=== PATIENT | male | born 1960 | race Caucasian/White ===

== ENCOUNTER 2017-01-15 02:33 | Emergency (ER) | payer OTHER ==
[~2017-01-15] VITALS: Ht 177.8 cm; Wt 104.3 kg
[~2017-01-15 02:33] MED LIST: ACET325T9 PO; ACET500T68 PO; ALBU2.5V5 NEB; ATOR10TA PO; BACL10TA PO; BENZ9.4C MM; BUSP10TA PO; BUSP5TAB PO; CHOL10003 PO; CLOP75TA57 PO; DIAZ2TAB PO; DOCU-109 PO; DULO30CA2 PO; DULO60CA6 PO; FAMO40TA57 PO; FERR-26 PO; FINA5TAB PO; FOLI1TAB16 PO; GABA-586 PO; GABA800T2 PO; HYDR-2762 PO; HYDR25TA PO; LACT20SO PO; LEVE500T56 PO; LEVO25TA4 PO; LUBI24CA7 PO; MAGN2400 PO; MAGN400T22 PO; MECL25TA3 PO; METO25TA4 PO; NA P133E2 RC; NICO1PAT21 TD; ONDA4TAB7 PO; PANT40TA3 PO; PHEN30SP8 MM; POLY17PO29 PO; PRAM0.255 PO; PRAZ2CAP2 PO; SIME80TA14 PO; SODIUM PHOSPHATE PR; TRAM50TA PO; TRAZ100T12 PO; ZINC57OI TP; Zinc Oxide TP; [UNRECOGNIZED DRUG - OTHER]; methadone PO; neurontin
--- NOTE | 2017-01-15 03:47 | RAD ---
PQRS Compliance Statement: One or more of the following individualized dose reduction techniques were utilized for this examination: 1. Automated exposure control 2. Adjustment of the mA and/or kV according to patient size 3. Use of iterative reconstruction technique CT head and cervical spine without contrast 01/15/2017 3:03 AM INDICATION: Trauma, status post fall COMPARISON: None available TECHNIQUE: Multiple axial CT images of the head were obtained from skull base through the vertex without intravenous contrast. Multiple axial CT images of the cervical spine were obtained without intravenous contrast. Coronal and sagittal reformats are provided. FINDINGS: Head: There is encephalomalacia involving the left frontal and temporal lobes likely secondary to prior MCA infarct. There is associated ex vacuo dilatation of the body of the left lateral ventricle. Ventricles, sulci and basal cisterns are otherwise within normal limits. There is no hydrocephalus. Cabrera-white matter differentiation is normal. There is no acute intracranial hemorrhage. There is no mass, mass effect or midline shift. Posterior fossa is normal in appearance. Visualized portions of the orbits are normal. Paranasal sinuses are well aerated. Mastoid air cells are well aerated. Scalp and calvaria are normal. Cervical spine: Alignment of the cervical spine is normal. Anterior cervical discectomy and fusion hardware is identified from C5 through C7. There is no significant facet arthropathy. A limbus vertebra is identified at C4 and C5. Fragments are well corticated suggestive of chronic findings. No significant neuroforaminal or spinal canal stenosis is visualized. There is no significant prevertebral edema. Craniocervical junction is normal. Atlantoaxial articulation is appropriate. Soft tissues of the neck appear normal. Visualized portions of the lung apices appear normal. Thyroid gland is normal in appearance. IMPRESSION: No acute intracranial hemorrhage. There is no evidence for acute fracture or malalignment of the cervical spine. 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 Anterior cervical discectomy and fusion is noted at C5-C7. Electronically signed by: Tish Bolden MD (01/15/2017 3:43 AM) [place] [id number]
--- NOTE | 2017-01-15 04:07 | PHYS DOC ---
Past Medical History Past Medical History: Anxiety, Constipation, CVA, Depression, GERD, High Cholesterol, Hypertension, Hypothyroid, UTI, Other Additional Past Medical Histor: PAIN, BPH,HEMIPLEGIA AND HEMIPARESIS,APHASIA, Hep C, RLS Past Surgical History: No Surgical History Additional Past Surgical Histo: UNKNOWN Alcohol Use: None Drug Use: None Adult General Chief Complaint Chief Complaint: MECHANICAL FALL HPI HPI Patient history and physical exam is unobtainable secondary to his inability to communicate. Patient is a 56 year old gentleman who presents from the nursing facility secondary to trauma. Patient was found on the floor. Per the correction the patient is currently at his baseline mental status. Patient is able to communicate slightly simple yes no answers. Patient is complaining of pain to his right hip and his right shoulder. Patient denies any neck pain or head pain. Patient isn't able to communicate to me why he fell. Review of systems: Unable to obtain secondary to inability to communicate. Physical exam Constitutional: Well developed, well nourished, no acute distress, non-toxic appearance. HENT: Normocephalic, atraumatic, Eyes: PERRLA, EOMI, conjunctiva normal, no discharge. Neck: Normal range of motion, no tenderness, supple, no stridor. Cardiovascular:Heart rate regular rhythm, Lungs & Thorax: Bilateral breath sounds clear to auscultation Abdomen: Bowel sounds normal, soft, no tenderness, no masses, no pulsatile masses. Skin: Warm, dry, no erythema, no rash. Back: No tenderness, no CVA tenderness. Extremities: No tenderness, no cyanosis, no clubbing, ROM intact, no edema. Patient is tenderness palpation to his right iliac crest. Patient is tenderness palpation to his right shoulder. Neurologic: Alert and oriented , Psychologic: Affect normal, judgement normal, mood normal. Assessment and plan This is a 56-year-old gentleman who presents by EMS secondary to recent fall from the nursing facility. Patient's workup in the ER is been unremarkable. X-ray right hip: No acute fracture dislocation as interpreted by ER physician X-ray right shoulder: No acute fracture dislocation as interpreted by ER physician. She scan head and cervical spine: No acute fracture or subdural hematoma as interpreted by radiology. Patient is clinically and hemodynamically stable at this time. Patient will be discharged back to his nursing facility with instructions for Tylenol as needed for pain. Allergies Allergies Allergies Coded Allergies Type Severity Reaction Last Updated Verified Penicillins Allergy Intermediate 10/28/15 Yes I S O L A T I O N *CONTACT* Allergy Unknown 10/28/15 Yes Current Patient Data Vital Signs Vital Signs Date Time Temp Pulse Resp B/P (MAP) Pulse Ox O2 Delivery O2 Flow Rate FiO2 01/15/17 02:40 97.6 85 18 149/72 (97) 95 Nasal Cannula 2.0 97.6 EKG EKG [] Radiology/Procedures Radiology/Procedures [] Course & Med Decision Making Course & Med Decision Making Pertinent Labs and Imaging studies reviewed. (See chart for details) [] Dragon Disclaimer Dragon Disclaimer This electronic medical record was generated, in whole or in part, using a voice recognition dictation system. Departure Departure Impression: Primary Impression: Fall Additional Impressions: Hip pain Head trauma Disposition: HOME, SELF-CARE Condition: STABLE Referrals: ENZO HOLLEY MD (PCP) Additional Instructions: Tylenol as needed for pain. Problem Qualifiers LUIS CARLOS MCGUIRE MD Jan 15, 2017 04:07
[2017-01-15 04:59] VITALS: BP 127/64
--- NOTE | 2017-01-15 07:19 | RAD ---
Pelvis with right hip, 01/15/2017: History: Fall, pain The bony structures are demineralized. There is a subtle transverse lucency projected over the medial aspect of the right femoral neck. While this may be due to an overlying soft tissue shadow, the appearance does raise the possibility of a nondisplaced fracture. No other fracture or dislocation is identified. There is mild spurring at both hip joints. IMPRESSION: Possible nondisplaced right femoral neck fracture. CT or MR scanning is suggested for further evaluation, if clinically indicated. Right shoulder, 3 views, 01/15/2017: History: Fall, pain The bony structures are demineralized. No fracture or dislocation is identified. The periarticular soft tissues are unremarkable. IMPRESSION: 1. Demineralization. 2. No acute bony abnormality is detected. Note: The findings were called to personnel in the [facility] ER at 7:15 AM on 01/15/2017.
== END 2017-01-15 05:15 | disposition home or self-care (01) ==
LOC: ER 02:33
DX: S09.90XA Unspecified injury of head, initial encounter (principal); M25.551 Pain in right hip; M25.511 Pain in right shoulder; F41.9 Anxiety disorder, unspecified; F32.9 Major depressive disorder, single episode, unspecified; K21.9 Gastro-esophageal reflux disease without esophagitis; E78.00 Pure hypercholesterolemia, unspecified; I10 Essential (primary) hypertension; E03.9 Hypothyroidism, unspecified; N40.0 Benign prostatic hyperplasia without lower urinary tract symptoms; G81.90 Hemiplegia, unspecified affecting unspecified side; G25.81 Restless legs syndrome; Z87.440 Personal history of urinary (tract) infections; Z88.0 Allergy status to penicillin; Z86.73 Personal history of transient ischemic attack (TIA), and cerebral infarction without residual deficits; Z91.041 Radiographic dye allergy status; W19.XXXA Unspecified fall, initial encounter; Y93.89 Activity, other specified; Y92.89 Other specified places as the place of occurrence of the external cause; Y99.8 Other external cause status
CPT/HCPCS: 70450; 72125; 73030; 73502; 99284-25

== ENCOUNTER 2017-05-05 20:33 | Inpatient (IN) | payer OTHER ==
[2017-05-05] MEDS: IV NORMAL SALINE 1000ML BAG 1,000 ML IV (21:45)
[2017-05-05 21:46] LABS: ADD MAN DIFF? NO
[2017-05-05 21:48] LABS: BASO % 0 % (0-3); EOS # 0.2 x10^3/uL (0.0-0.7); EOS % 1 % (0-3); HEMATOCRIT 40.4 % (39.0-53.0); HEMOGLOBIN 13.2 g/dL (13.0-17.5); LYMPH # 2.5 x10^3/uL (1.0-4.8); LYMPH % 20 % (24-48); MEAN CORPUSCULAR HEMOGLOBIN 26 pg (25-35); MEAN CORPUSCULAR HGB CONC 33 g/dL (31-37); MEAN CORPUSCULAR VOLUME 80 fL (79-100); MONO # 0.8 x10^3/uL (0.0-1.1); MONO % 7 % (0-9); NEUT # 9.2 x10^3uL (1.8-7.7); NEUT % 72 % (31-73); PLATELET COUNT 280 x10^3/uL (140-400); RED BLOOD COUNT 5.03 x10^6/uL (4.30-5.70); RED CELL DISTRIBUTION WIDTH 15.1 % (11.5-14.5); WHITE BLOOD COUNT 12.7 x10^3/uL (4.0-11.0)
[2017-05-05 21:56] LABS: ANION GAP 7 (6-14); BLOOD UREA NITROGEN 6 mg/dL (8-26); BUN/CREATININE RATIO 8 (6-20); CALCIUM 9.1 mg/dL (8.5-10.1); CARBON DIOXIDE 31 mmol/L (21-32); CHLORIDE 105 mmol/L (98-107); CREATININE 0.8 mg/dL (0.7-1.3); GFR 99.6; GLUCOSE 128 mg/dL (70-99); POTASSIUM 4.4 mmol/L (3.5-5.1); SODIUM 143 mmol/L (136-145)
[2017-05-05 22:01] LABS: ALBUMIN 3.1 g/dL (3.4-5.0); ALBUMIN/GLOBULIN RATIO 0.7 (1.0-1.7); ALK PHOS 123 U/L (46-116); ALT (SGPT) 33 U/L (16-63); AST (SGOT) 29 U/L (15-37); TOTAL BILIRUBIN 0.3 mg/dL (0.2-1.0); TOTAL PROTEIN 7.7 g/dL (6.4-8.2)
[2017-05-05 22:03] LABS: TROPONINI < 0.017 ng/mL (0.000-0.055)
[2017-05-05] MEDS: MORPHINE SULFATE 2 MG/ML DISP.SYRIN. IV (23:50)
[2017-05-06 00:29] LABS: BILIRUBIN,URINE NEGATIVE (NEG); CLARITY,URINE CLEAR; COLOR,URINE AMBER; GLUCOSE,URINE NEGATIVE (NEG); NITRITE,URINE NEGATIVE (NEG); PROTEIN,URINE NEGATIVE (NEG-TRACE)
[2017-05-06 00:34] LABS: BACTERIA,URINE 0 /HPF (0-FEW); RBC,URINE 0 /HPF (0-2); SQUAMOUS EPITHELIAL CELL,UR FEW /LPF
[2017-05-06] MEDS: ONDANSETRON PF 4 MG/2 ML VIAL. IV (01:52)
[2017-05-06] MEDS: MORPHINE SULFATE 4 MG/ML DISP.SYRIN. IV ×6 (01:53→21:48)
[2017-05-06] MEDS: IV NORMAL SALINE 1000ML BAG 1,000 ML IV ×4 (01:54→17:45)
[2017-05-06] MEDS ORDERED: ALBUTEROL SULFATE 2.5 MG/3 ML NEBU. NEB (09:45)
[2017-05-06] MEDS: BUDESONIDE 0.5 MG/2 ML NEBU. NEB ×2 (10:00→19:50)
[2017-05-06 11:10] LABS: INR 1.1 (0.8-1.1); PROTHROMBIN TIME PATIENT 13.1 SEC (11.7-14.0)
[2017-05-06] MEDS: IPRATRPIUM/ALBUTEROL 0.5/2.5MG 3 ML NEBU. NEB ×3 (11:15→19:50)
[2017-05-06] MEDS: LEVOTHYROXINE SODIUM IVP (11:40)
[2017-05-06] MEDS: NORMAL SALINE IVP (11:40)
[2017-05-06 17:14] LABS: MRSA BY PCR Positive (Negative)
[2017-05-06] MEDS: MUPIROCIN 2 % NASAL OINTMENT 22GM TUBE. NS (21:48)
[2017-05-06] MEDS: HEPARIN PF for SUB-Q USE 5,000 UNIT/0.5 ML VIAL. SQ (21:48)
[2017-05-07] MEDS: IV NORMAL SALINE 1000ML BAG 1,000 ML IV ×3 (01:33→21:27)
[2017-05-07] MEDS: MORPHINE SULFATE 4 MG/ML DISP.SYRIN. IV ×4 (01:34→13:22)
[2017-05-07] MEDS: HEPARIN PF for SUB-Q USE 5,000 UNIT/0.5 ML VIAL. SQ ×3 (05:06→21:52)
[2017-05-07 05:36] LABS: ADD MAN DIFF? NO
[2017-05-07 05:41] LABS: BASO % 0 % (0-3); EOS # 0.2 x10^3/uL (0.0-0.7); EOS % 3 % (0-3); HEMOGLOBIN 12.7 g/dL (13.0-17.5); LYMPH # 2.2 x10^3/uL (1.0-4.8); LYMPH % 24 % (24-48); MEAN CORPUSCULAR HEMOGLOBIN 26 pg (25-35); MEAN CORPUSCULAR HGB CONC 33 g/dL (31-37); MEAN CORPUSCULAR VOLUME 80 fL (79-100); MONO # 0.6 x10^3/uL (0.0-1.1); MONO % 6 % (0-9); NEUT # 6.2 x10^3uL (1.8-7.7); NEUT % 67 % (31-73); PLATELET COUNT 270 x10^3/uL (140-400); RED BLOOD COUNT 4.89 x10^6/uL (4.30-5.70); RED CELL DISTRIBUTION WIDTH 15.2 % (11.5-14.5); WHITE BLOOD COUNT 9.3 x10^3/uL (4.0-11.0)
[2017-05-07 06:15] LABS: ANION GAP 5 (6-14); BLOOD UREA NITROGEN 7 mg/dL (8-26); CALCIUM 8.7 mg/dL (8.5-10.1); CARBON DIOXIDE 31 mmol/L (21-32); CHLORIDE 102 mmol/L (98-107); CREATININE 0.7 mg/dL (0.7-1.3); GFR 116.2; GLUCOSE 95 mg/dL (70-99); MAGNESIUM 1.9 mg/dL (1.8-2.4); POTASSIUM 4.2 mmol/L (3.5-5.1); SODIUM 138 mmol/L (136-145)
[2017-05-07] MEDS: IPRATRPIUM/ALBUTEROL 0.5/2.5MG 3 ML NEBU. NEB ×4 (07:20→20:00)
[2017-05-07] MEDS: BUDESONIDE 0.5 MG/2 ML NEBU. NEB ×2 (07:20→20:00)
[2017-05-07] MEDS: LEVOTHYROXINE SODIUM IVP (09:42)
[2017-05-07] MEDS: NORMAL SALINE IVP (09:42)
[2017-05-07] MEDS: ONDANSETRON PF 4 MG/2 ML VIAL. IV (09:44)
[2017-05-07] MEDS: IV RINGERS,LACTATED 1000ML 1,000 ML IV (10:04)
[2017-05-07] MEDS ORDERED: fentaNYL PF VIAL 100 MCG/2 ML VIAL IV (10:15)
[2017-05-07] MEDS ORDERED: MORPHINE SULFATE 4 MG/ML DISP.SYRIN. IV (10:15)
[2017-05-07] MEDS ORDERED: LIDOCAINE 1% PF 2 ML VIAL. ID (10:15)
[2017-05-07] MEDS ORDERED: PROCHLORPERAZINE 10 MG/2 ML VIAL. IV (10:15)
[2017-05-07] MEDS: MUPIROCIN 2 % NASAL OINTMENT 22GM TUBE. NS ×2 (13:21→21:27)
[2017-05-07] MEDS ORDERED: LIDOCAINE 1% PF 5 ML VIAL. (13:24)
[2017-05-07] MEDS ORDERED: PROPOFOL 20 ML IV ×2 (13:24→18:09)
[2017-05-07] MEDS ORDERED: ROCURONIUM 50 MG/5 ML VIAL. (13:25)
[2017-05-07] MEDS ORDERED: SUCCINYLCHOLINE 200 MG/10 ML VIAL. (13:26)
[2017-05-07] MEDS ORDERED: fentaNYL PF VIAL 100 MCG/2 ML VIAL (13:26)
[2017-05-07] MEDS ORDERED: VANCOMYCIN 1GM IVPB FOR OMNI 250 ML (16:42)
[2017-05-07] MEDS: VANCOMYCIN 1GM IVPB FOR OMNI 250 ML IV (16:46)
[2017-05-07] MEDS: MORPHINE SULFATE 5 MG, KETOROLAC 30 MG, ROPIVacaine 0.5% PF 60 ML, EPINEPHrine 0.5 MG i... INT ART (17:19)
[2017-05-07] MEDS ORDERED: NEOSTIGMINE 10 MG/10 ML VIAL. (17:44)
[2017-05-07] MEDS ORDERED: GLYCOPYRROLATE 1 MG/5 ML VIAL. (17:45)
[2017-05-07] MEDS: fentaNYL PF VIAL 100 MCG/2 ML VIAL IV ×2 (18:43→18:55)
[2017-05-08] MEDS: IV NORMAL SALINE 1000ML BAG 1,000 ML IV (01:45)
[2017-05-08 04:38] LABS: ADD MAN DIFF? NO
[2017-05-08] MEDS ORDERED: VANCOMYCIN 1GM IVPB FOR OMNI 250 ML IV (05:00)
[2017-05-08 05:05] LABS: BASO % 0 % (0-3); EOS # 0.2 x10^3/uL (0.0-0.7); EOS % 2 % (0-3); HEMOGLOBIN 11.6 g/dL (13.0-17.5); LYMPH # 1.6 x10^3/uL (1.0-4.8); LYMPH % 16 % (24-48); MEAN CORPUSCULAR HEMOGLOBIN 26 pg (25-35); MEAN CORPUSCULAR HGB CONC 33 g/dL (31-37); MEAN CORPUSCULAR VOLUME 79 fL (79-100); MONO # 0.8 x10^3/uL (0.0-1.1); MONO % 8 % (0-9); NEUT # 7.6 x10^3uL (1.8-7.7); NEUT % 75 % (31-73); PLATELET COUNT 270 x10^3/uL (140-400); RED BLOOD COUNT 4.41 x10^6/uL (4.30-5.70); RED CELL DISTRIBUTION WIDTH 14.7 % (11.5-14.5); WHITE BLOOD COUNT 10.1 x10^3/uL (4.0-11.0)
[2017-05-08 05:08] LABS: ANION GAP 6 (6-14); BLOOD UREA NITROGEN 5 mg/dL (8-26); CALCIUM 8.3 mg/dL (8.5-10.1); CARBON DIOXIDE 31 mmol/L (21-32); CHLORIDE 103 mmol/L (98-107); CREATININE 0.7 mg/dL (0.7-1.3); GFR 116.2; GLUCOSE 103 mg/dL (70-99); POTASSIUM 3.8 mmol/L (3.5-5.1); SODIUM 140 mmol/L (136-145)
[2017-05-08] MEDS: HEPARIN PF for SUB-Q USE 5,000 UNIT/0.5 ML VIAL. SQ ×3 (05:35→23:15)
[2017-05-08] MEDS: VANCOMYCIN 1 GM in IV NORMAL SALINE 250ML 250 ML IV (05:49)
[2017-05-08] MEDS: MORPHINE SULFATE 4 MG/ML DISP.SYRIN. IV (05:50)
[2017-05-08] MEDS: ACETAMINOPHEN 325 MG TABLET. PO ×3 (07:13→20:27)
[2017-05-08] MEDS: IPRATRPIUM/ALBUTEROL 0.5/2.5MG 3 ML NEBU. NEB ×4 (07:41→20:00)
[2017-05-08] MEDS: BUDESONIDE 0.5 MG/2 ML NEBU. NEB ×2 (07:41→20:00)
[2017-05-08] MEDS: ACETAMINOPHEN 325 MG SUPP.RECT. PR (07:44)
[2017-05-08] MEDS ORDERED: MECLIZINE HCL 12.5 MG TABLET. PO (08:15)
[2017-05-08] MEDS ORDERED: SODIUM PHOSPHATES 19/7GM 133 ML ENEMA. RC (08:15)
[2017-05-08] MEDS: NORMAL SALINE IVP (08:27)
[2017-05-08] MEDS: LEVOTHYROXINE SODIUM IVP (08:27)
[2017-05-08] MEDS: MUPIROCIN 2 % NASAL OINTMENT 22GM TUBE. NS ×2 (08:27→20:29)
[2017-05-08] MEDS: AMINO AC 3%/ELECTROLYTE/GLYCER 1,000 ML IV ×2 (10:30→23:09)
[2017-05-08] MEDS: FOLIC ACID 1 MG TABLET. PO (10:32)
[2017-05-08] MEDS: LUBIPROSTONE 8 MCG CAPSULE PO ×2 (10:32→18:00)
[2017-05-08] MEDS: POLYETHYLENE GLYCOL 3350 17 GM PACKET. PO (10:32)
[2017-05-08] MEDS: PANTOPRAZOLE 40 MG TABLET.DR. PO (10:32)
[2017-05-08] MEDS: busPIRone 5 MG TABLET. PO ×3 (10:32→20:27)
[2017-05-08] MEDS: CHOLECALCIFEROL (VITAMIN D3) 1,000 UNIT TABLET PO (10:32)
[2017-05-08] MEDS: GABAPENTIN 400 MG CAPSULE. PO ×3 (10:33→23:08)
[2017-05-08] MEDS: diazePAM 2 MG TABLET PO ×2 (10:33→20:26)
[2017-05-08] MEDS: DOCUSATE SODIUM 100 MG CAPSULE. PO ×2 (10:33→20:28)
[2017-05-08] MEDS: METHADONE 5 MG/5 ML SOLUTION. PO ×3 (10:33→20:28)
[2017-05-08] MEDS: MAGNESIUM OXIDE 400 MG TABLET PO ×2 (10:33→23:08)
[2017-05-08] MEDS: BACLOFEN 10 MG TABLET. PO ×3 (10:33→20:28)
[2017-05-08 11:07] LABS: BILIRUBIN,URINE NEGATIVE (NEG); CLARITY,URINE CLOUDY; COLOR,URINE YELLOW; GLUCOSE,URINE NEGATIVE (NEG); NITRITE,URINE NEGATIVE (NEG); PH,URINE 6.5; PROTEIN,URINE NEGATIVE (NEG-TRACE); UROBILINOGEN,URINE 0.2 mg/dL (0.2 mg/dL)
[2017-05-08 11:16] LABS: BACTERIA,URINE 0 /HPF (0-FEW); RBC,URINE OCC /HPF (0-2); WBC,URINE 0 /HPF (0-4)
[2017-05-08] MEDS: VANCOMYCIN PER PHARMACY MC ×2 (20:00→21:39)
[2017-05-08] MEDS: HYDROcodone/APAP 7.5/325MG 1 TAB TABLET PO (20:26)
[2017-05-08] MEDS: DULoxetine HCL 30 MG CAPSULE.DR PO (20:26)
[2017-05-08] MEDS: ATORVASTATIN CALCIUM 10 MG TABLET. PO (20:27)
[2017-05-08] MEDS: CLOPIDOGREL BISULFATE 75 MG TABLET PO (20:27)
[2017-05-08] MEDS: LACTOBACILLUS RHAMNOSUS GG 1 CAPSULE. PO (20:27)
[2017-05-08] MEDS: VANCOMYCIN 2 GM in IV DEXTROSE 5 %-0.2 % NACL 500 ML IV (20:29)
[2017-05-08] MEDS: PRAMIPEXOLE 0.25 MG TABLET. PO (23:08)
[2017-05-08] MEDS: GABAPENTIN 300 MG CAPSULE. PO (23:09)
[2017-05-09] MEDS: HYDROcodone/APAP 7.5/325MG 1 TAB TABLET PO ×4 (02:35→21:23)
[2017-05-09 05:07] LABS: ADD MAN DIFF? NO
[2017-05-09] MEDS: VANCOMYCIN 1.5 GM in IV DEXTROSE 5 %-0.2 % NACL 500 ML IV ×2 (05:07→12:43)
[2017-05-09 05:17] LABS: BASO % 0 % (0-3); EOS # 0.2 x10^3/uL (0.0-0.7); EOS % 2 % (0-3); HEMATOCRIT 32.6 % (39.0-53.0); HEMOGLOBIN 10.8 g/dL (13.0-17.5); LYMPH # 2.5 x10^3/uL (1.0-4.8); LYMPH % 31 % (24-48); MEAN CORPUSCULAR HEMOGLOBIN 26 pg (25-35); MEAN CORPUSCULAR HGB CONC 33 g/dL (31-37); MEAN CORPUSCULAR VOLUME 79 fL (79-100); MONO % 13 % (0-9); NEUT # 4.4 x10^3uL (1.8-7.7); NEUT % 54 % (31-73); PLATELET COUNT 267 x10^3/uL (140-400); RED BLOOD COUNT 4.14 x10^6/uL (4.30-5.70); RED CELL DISTRIBUTION WIDTH 14.7 % (11.5-14.5); WHITE BLOOD COUNT 8.1 x10^3/uL (4.0-11.0)
[2017-05-09 05:34] LABS: ANION GAP 8 (6-14); BLOOD UREA NITROGEN 8 mg/dL (8-26); CALCIUM 8.2 mg/dL (8.5-10.1); CARBON DIOXIDE 29 mmol/L (21-32); CHLORIDE 101 mmol/L (98-107); CREATININE 0.8 mg/dL (0.7-1.3); GFR 99.6; GLUCOSE 136 mg/dL (70-99); POTASSIUM 3.4 mmol/L (3.5-5.1); SODIUM 138 mmol/L (136-145)
[2017-05-09] MEDS: ACETAMINOPHEN 325 MG TABLET. PO (06:16)
[2017-05-09] MEDS: PANTOPRAZOLE 40 MG TABLET.DR. PO (06:16)
[2017-05-09] MEDS: HEPARIN PF for SUB-Q USE 5,000 UNIT/0.5 ML VIAL. SQ ×3 (06:21→21:17)
[2017-05-09] MEDS: IPRATRPIUM/ALBUTEROL 0.5/2.5MG 3 ML NEBU. NEB ×4 (07:31→20:04)
[2017-05-09] MEDS: BUDESONIDE 0.5 MG/2 ML NEBU. NEB ×2 (07:31→20:04)
[2017-05-09] MEDS: POLYETHYLENE GLYCOL 3350 17 GM PACKET. PO (09:03)
[2017-05-09] MEDS: CHOLECALCIFEROL (VITAMIN D3) 1,000 UNIT TABLET PO (09:03)
[2017-05-09] MEDS: MAGNESIUM OXIDE 400 MG TABLET PO ×2 (09:03→21:11)
[2017-05-09] MEDS: NORMAL SALINE IVP (09:03)
[2017-05-09] MEDS: LEVOTHYROXINE SODIUM IVP (09:03)
[2017-05-09] MEDS: GABAPENTIN 400 MG CAPSULE. PO ×3 (09:04→21:11)
[2017-05-09] MEDS: busPIRone 5 MG TABLET. PO ×3 (09:04→21:11)
[2017-05-09] MEDS: LUBIPROSTONE 8 MCG CAPSULE PO ×2 (09:04→17:56)
[2017-05-09] MEDS: diazePAM 2 MG TABLET PO ×2 (09:04→21:11)
[2017-05-09] MEDS: DOCUSATE SODIUM 100 MG CAPSULE. PO ×2 (09:04→21:11)
[2017-05-09] MEDS: FOLIC ACID 1 MG TABLET. PO (09:04)
[2017-05-09] MEDS: BACLOFEN 10 MG TABLET. PO ×3 (09:04→21:11)
[2017-05-09] MEDS: LACTOBACILLUS RHAMNOSUS GG 1 CAPSULE. PO ×2 (09:04→21:11)
[2017-05-09] MEDS: METHADONE 5 MG/5 ML SOLUTION. PO ×3 (09:05→21:07)
[2017-05-09] MEDS: MUPIROCIN 2 % NASAL OINTMENT 22GM TUBE. NS ×2 (09:05→21:06)
[2017-05-09] MEDS: AMINO AC 3%/ELECTROLYTE/GLYCER 1,000 ML IV (10:29)
[2017-05-09] MEDS: MORPHINE SULFATE 4 MG/ML DISP.SYRIN. IV ×2 (10:45→19:07)
[2017-05-09 11:14] LABS: INFLUENZA A PATIENT NEGATIVE (NEGATIVE); INFLUENZA B PATIENT NEGATIVE (NEGATIVE); OBC FLU VALID
[2017-05-09 11:41] LABS: PROCALCITONIN < 0.10 ng/mL (0.00-0.10)
[2017-05-09] MEDS: VANCOMYCIN PER PHARMACY MC ×2 (15:04→21:30)
[2017-05-09] MEDS: FERROUS SULFATE 325 MG TABLET. PO (17:56)
[2017-05-09 21:02] LABS: VANC TR 26.7 mcg/mL (10.0-20.0)
[2017-05-09] MEDS: PRAMIPEXOLE 0.25 MG TABLET. PO (21:09)
[2017-05-09] MEDS: levETIRAcetam 500 MG TABLET PO (21:09)
[2017-05-09] MEDS: DULoxetine HCL 30 MG CAPSULE.DR PO (21:09)
[2017-05-09] MEDS: ATORVASTATIN CALCIUM 10 MG TABLET. PO (21:09)
[2017-05-09] MEDS: GABAPENTIN 300 MG CAPSULE. PO (21:10)
[2017-05-09] MEDS: CLOPIDOGREL BISULFATE 75 MG TABLET PO (21:11)
[2017-05-10] MEDS: HYDROcodone/APAP 7.5/325MG 1 TAB TABLET PO ×3 (01:58→23:45)
[2017-05-10 05:56] LABS: ADD MAN DIFF? NO
[2017-05-10 06:18] LABS: ANION GAP 2 (6-14); BLOOD UREA NITROGEN 8 mg/dL (8-26); CALCIUM 8.2 mg/dL (8.5-10.1); CARBON DIOXIDE 31 mmol/L (21-32); CHLORIDE 101 mmol/L (98-107); CREATININE 0.8 mg/dL (0.7-1.3); GFR 99.6; GLUCOSE 108 mg/dL (70-99); POTASSIUM 3.5 mmol/L (3.5-5.1); SODIUM 134 mmol/L (136-145)
[2017-05-10 06:40] LABS: BASO # 0.1 x10^3/uL (0.0-0.2); BASO % 1 % (0-3); EOS # 0.5 x10^3/uL (0.0-0.7); EOS % 5 % (0-3); HEMATOCRIT 31.1 % (39.0-53.0); HEMOGLOBIN 10.2 g/dL (13.0-17.5); LYMPH # 2.6 x10^3/uL (1.0-4.8); LYMPH % 26 % (24-48); MEAN CORPUSCULAR HEMOGLOBIN 26 pg (25-35); MEAN CORPUSCULAR HGB CONC 33 g/dL (31-37); MEAN CORPUSCULAR VOLUME 79 fL (79-100); MONO # 0.9 x10^3/uL (0.0-1.1); MONO % 8 % (0-9); NEUT # 6.3 x10^3uL (1.8-7.7); NEUT % 61 % (31-73); PLATELET COUNT 284 x10^3/uL (140-400); RED BLOOD COUNT 3.94 x10^6/uL (4.30-5.70); WHITE BLOOD COUNT 10.3 x10^3/uL (4.0-11.0)
[2017-05-10] MEDS: LEVOTHYROXINE 25 MCG TABLET. PO (06:44)
[2017-05-10] MEDS: PANTOPRAZOLE 40 MG TABLET.DR. PO (06:44)
[2017-05-10] MEDS: HEPARIN PF for SUB-Q USE 5,000 UNIT/0.5 ML VIAL. SQ ×3 (06:53→21:41)
[2017-05-10] MEDS: IPRATRPIUM/ALBUTEROL 0.5/2.5MG 3 ML NEBU. NEB ×4 (07:47→20:34)
[2017-05-10] MEDS: BUDESONIDE 0.5 MG/2 ML NEBU. NEB ×2 (07:47→20:34)
[2017-05-10] MEDS: diazePAM 2 MG TABLET PO ×2 (08:56→21:32)
[2017-05-10] MEDS: DOCUSATE SODIUM 100 MG CAPSULE. PO ×2 (08:56→21:31)
[2017-05-10] MEDS: GABAPENTIN 400 MG CAPSULE. PO ×3 (08:56→21:31)
[2017-05-10] MEDS: levETIRAcetam 500 MG TABLET PO ×2 (08:56→21:33)
[2017-05-10] MEDS: LUBIPROSTONE 8 MCG CAPSULE PO ×2 (08:56→18:06)
[2017-05-10] MEDS: CHOLECALCIFEROL (VITAMIN D3) 1,000 UNIT TABLET PO (08:56)
[2017-05-10] MEDS: LACTOBACILLUS RHAMNOSUS GG 1 CAPSULE. PO ×2 (08:56→21:32)
[2017-05-10] MEDS: METHADONE 5 MG/5 ML SOLUTION. PO ×3 (08:57→21:30)
[2017-05-10] MEDS: BACLOFEN 10 MG TABLET. PO ×3 (08:57→21:32)
[2017-05-10] MEDS: FOLIC ACID 1 MG TABLET. PO (08:57)
[2017-05-10] MEDS: VANCOMYCIN 1.25 GM in IV DEXTROSE 5 %-0.2 % NACL 250 ML IV (08:57)
[2017-05-10] MEDS: MAGNESIUM OXIDE 400 MG TABLET PO ×2 (08:57→21:31)
[2017-05-10] MEDS: POLYETHYLENE GLYCOL 3350 17 GM PACKET. PO (08:57)
[2017-05-10] MEDS: busPIRone 5 MG TABLET. PO ×3 (08:57→21:32)
[2017-05-10] MEDS: MUPIROCIN 2 % NASAL OINTMENT 22GM TUBE. NS ×2 (08:58→21:29)
[2017-05-10] MEDS: MORPHINE SULFATE 4 MG/ML DISP.SYRIN. IV (09:50)
[2017-05-10] MEDS: POTASSIUM CHLORIDE 20 MEQ TABLET.ER. PO (13:34)
[2017-05-10] MEDS: DULoxetine HCL 30 MG CAPSULE.DR PO (21:29)
[2017-05-10] MEDS: PRAMIPEXOLE 0.25 MG TABLET. PO (21:30)
[2017-05-10] MEDS: ATORVASTATIN CALCIUM 10 MG TABLET. PO (21:31)
[2017-05-10] MEDS: CLOPIDOGREL BISULFATE 75 MG TABLET PO (21:33)
[2017-05-10] MEDS: GABAPENTIN 300 MG CAPSULE. PO (21:33)
[2017-05-11] MEDS: HYDROcodone/APAP 7.5/325MG 1 TAB TABLET PO ×3 (06:30→16:41)
[2017-05-11] MEDS: PANTOPRAZOLE 40 MG TABLET.DR. PO (06:30)
[2017-05-11] MEDS: LEVOTHYROXINE 25 MCG TABLET. PO (06:30)
[2017-05-11] MEDS: HEPARIN PF for SUB-Q USE 5,000 UNIT/0.5 ML VIAL. SQ ×3 (06:38→22:00)
[2017-05-11] MEDS: IPRATRPIUM/ALBUTEROL 0.5/2.5MG 3 ML NEBU. NEB ×4 (07:28→19:54)
[2017-05-11] MEDS: BUDESONIDE 0.5 MG/2 ML NEBU. NEB ×2 (07:29→19:54)
[2017-05-11] MEDS: POLYETHYLENE GLYCOL 3350 17 GM PACKET. PO (08:13)
[2017-05-11] MEDS: LACTOBACILLUS RHAMNOSUS GG 1 CAPSULE. PO ×2 (08:15→20:47)
[2017-05-11] MEDS: FOLIC ACID 1 MG TABLET. PO (08:15)
[2017-05-11] MEDS: DOCUSATE SODIUM 100 MG CAPSULE. PO ×2 (08:15→20:45)
[2017-05-11] MEDS: levETIRAcetam 500 MG TABLET PO ×2 (08:15→20:46)
[2017-05-11] MEDS: LUBIPROSTONE 8 MCG CAPSULE PO ×2 (08:15→16:41)
[2017-05-11] MEDS: CHOLECALCIFEROL (VITAMIN D3) 1,000 UNIT TABLET PO (08:15)
[2017-05-11] MEDS: MAGNESIUM OXIDE 400 MG TABLET PO ×2 (08:15→20:51)
[2017-05-11] MEDS: BACLOFEN 10 MG TABLET. PO ×3 (08:16→20:46)
[2017-05-11] MEDS: GABAPENTIN 400 MG CAPSULE. PO ×3 (08:16→20:51)
[2017-05-11] MEDS: METHADONE 5 MG/5 ML SOLUTION. PO ×3 (08:17→20:48)
[2017-05-11] MEDS: diazePAM 2 MG TABLET PO ×2 (08:31→20:46)
[2017-05-11] MEDS: busPIRone 5 MG TABLET. PO ×3 (08:31→20:46)
[2017-05-11] MEDS: GABAPENTIN 300 MG CAPSULE. PO (20:44)
[2017-05-11] MEDS: PRAMIPEXOLE 0.25 MG TABLET. PO (20:45)
[2017-05-11] MEDS: CLOPIDOGREL BISULFATE 75 MG TABLET PO (20:46)
[2017-05-11] MEDS: ATORVASTATIN CALCIUM 10 MG TABLET. PO (20:46)
[2017-05-11] MEDS: DULoxetine HCL 30 MG CAPSULE.DR PO (20:46)
[2017-05-12] MEDS: HEPARIN PF for SUB-Q USE 5,000 UNIT/0.5 ML VIAL. SQ ×3 (05:34→22:00)
[2017-05-12] MEDS: LEVOTHYROXINE 25 MCG TABLET. PO (05:35)
[2017-05-12] MEDS: BUDESONIDE 0.5 MG/2 ML NEBU. NEB ×2 (07:49→19:28)
[2017-05-12] MEDS: IPRATRPIUM/ALBUTEROL 0.5/2.5MG 3 ML NEBU. NEB ×4 (07:49→19:28)
[2017-05-12] MEDS: METHADONE 5 MG/5 ML SOLUTION. PO ×3 (09:54→20:31)
[2017-05-12] MEDS: levETIRAcetam 500 MG TABLET PO ×2 (09:55→20:30)
[2017-05-12] MEDS: BACLOFEN 10 MG TABLET. PO ×3 (09:56→20:30)
[2017-05-12] MEDS: GABAPENTIN 300 MG CAPSULE. PO ×2 (09:56→20:28)
[2017-05-12] MEDS: HYDROcodone/APAP 7.5/325MG 1 TAB TABLET PO ×2 (09:56→14:49)
[2017-05-12] MEDS: MAGNESIUM HYDROXIDE 2,400 MG/30 ML ORAL.SUSP. PO (09:59)
[2017-05-12] MEDS: FOLIC ACID 1 MG TABLET. PO (09:59)
[2017-05-12] MEDS: CHOLECALCIFEROL (VITAMIN D3) 1,000 UNIT TABLET PO (09:59)
[2017-05-12] MEDS: DOCUSATE SODIUM 100 MG CAPSULE. PO ×2 (10:00→20:30)
[2017-05-12] MEDS: diazePAM 2 MG TABLET PO ×2 (10:00→20:26)
[2017-05-12] MEDS: LUBIPROSTONE 8 MCG CAPSULE PO ×2 (10:00→17:00)
[2017-05-12] MEDS: PANTOPRAZOLE 40 MG TABLET.DR. PO (10:00)
[2017-05-12] MEDS: busPIRone 5 MG TABLET. PO ×3 (10:00→20:29)
[2017-05-12] MEDS: POLYETHYLENE GLYCOL 3350 17 GM PACKET. PO (10:00)
[2017-05-12] MEDS: MORPHINE SULFATE 4 MG/ML DISP.SYRIN. IV ×2 (10:01→14:51)
[2017-05-12] MEDS: MAGNESIUM OXIDE 400 MG TABLET PO ×2 (12:46→20:29)
[2017-05-12] MEDS: GABAPENTIN 400 MG CAPSULE. PO ×3 (12:47→20:30)
[2017-05-12] MEDS: LACTOBACILLUS RHAMNOSUS GG 1 CAPSULE. PO ×2 (12:47→20:30)
[2017-05-12] MEDS: PRAMIPEXOLE 0.25 MG TABLET. PO (20:26)
[2017-05-12] MEDS: DULoxetine HCL 30 MG CAPSULE.DR PO (20:28)
[2017-05-12] MEDS: CLOPIDOGREL BISULFATE 75 MG TABLET PO (20:29)
[2017-05-12] MEDS: ATORVASTATIN CALCIUM 10 MG TABLET. PO (20:29)
[2017-05-13] MEDS: HEPARIN PF for SUB-Q USE 5,000 UNIT/0.5 ML VIAL. SQ ×2 (06:00→14:09)
[2017-05-13] MEDS: PANTOPRAZOLE 40 MG TABLET.DR. PO (07:29)
[2017-05-13 07:32] LABS: ADD MAN DIFF? NO
[2017-05-13] MEDS: LEVOTHYROXINE 25 MCG TABLET. PO (07:33)
[2017-05-13 07:38] LABS: BASO # 0.1 x10^3/uL (0.0-0.2); BASO % 1 % (0-3); EOS # 0.6 x10^3/uL (0.0-0.7); EOS % 6 % (0-3); HEMATOCRIT 30.3 % (39.0-53.0); HEMOGLOBIN 9.9 g/dL (13.0-17.5); LYMPH # 2.8 x10^3/uL (1.0-4.8); LYMPH % 30 % (24-48); MEAN CORPUSCULAR HEMOGLOBIN 26 pg (25-35); MEAN CORPUSCULAR HGB CONC 33 g/dL (31-37); MEAN CORPUSCULAR VOLUME 80 fL (79-100); MONO # 0.8 x10^3/uL (0.0-1.1); MONO % 9 % (0-9); NEUT # 5.1 x10^3uL (1.8-7.7); NEUT % 54 % (31-73); PLATELET COUNT 367 x10^3/uL (140-400); RED BLOOD COUNT 3.81 x10^6/uL (4.30-5.70); RED CELL DISTRIBUTION WIDTH 15.1 % (11.5-14.5); WHITE BLOOD COUNT 9.4 x10^3/uL (4.0-11.0)
[2017-05-13] MEDS: BUDESONIDE 0.5 MG/2 ML NEBU. NEB (07:46)
[2017-05-13] MEDS: IPRATRPIUM/ALBUTEROL 0.5/2.5MG 3 ML NEBU. NEB ×3 (07:46→15:34)
[2017-05-13 07:47] LABS: INR 0.9 (0.8-1.1); PROTHROMBIN TIME PATIENT 11.5 SEC (11.7-14.0)
[2017-05-13 08:03] LABS: ANION GAP 5 (6-14); BLOOD UREA NITROGEN 12 mg/dL (8-26); CALCIUM 9.1 mg/dL (8.5-10.1); CARBON DIOXIDE 34 mmol/L (21-32); CHLORIDE 103 mmol/L (98-107); CREATININE 0.7 mg/dL (0.7-1.3); GFR 116.2; GLUCOSE 122 mg/dL (70-99); POTASSIUM 4.3 mmol/L (3.5-5.1); SODIUM 142 mmol/L (136-145)
[2017-05-13] MEDS: METHADONE 5 MG/5 ML SOLUTION. PO ×2 (08:49→14:03)
[2017-05-13] MEDS: LUBIPROSTONE 8 MCG CAPSULE PO (08:50)
[2017-05-13] MEDS: LACTOBACILLUS RHAMNOSUS GG 1 CAPSULE. PO (08:50)
[2017-05-13] MEDS: MAGNESIUM OXIDE 400 MG TABLET PO (08:50)
[2017-05-13] MEDS: BACLOFEN 10 MG TABLET. PO ×2 (08:50→14:03)
[2017-05-13] MEDS: POLYETHYLENE GLYCOL 3350 17 GM PACKET. PO (08:50)
[2017-05-13] MEDS: levETIRAcetam 500 MG TABLET PO (08:50)
[2017-05-13] MEDS: CHOLECALCIFEROL (VITAMIN D3) 1,000 UNIT TABLET PO (08:50)
[2017-05-13] MEDS: DOCUSATE SODIUM 100 MG CAPSULE. PO (08:51)
[2017-05-13] MEDS: diazePAM 2 MG TABLET PO (08:51)
[2017-05-13] MEDS: FOLIC ACID 1 MG TABLET. PO (08:51)
[2017-05-13] MEDS: GABAPENTIN 400 MG CAPSULE. PO ×2 (08:51→14:03)
[2017-05-13] MEDS: busPIRone 5 MG TABLET. PO ×2 (08:51→14:03)
== END 2017-05-13 16:20 | disposition home or self-care (01) | DRG 480 ==
LOC: 4 NORTH 05-06 01:07 → ER 20:33
PROC: 0QS604Z Reposition Right Upper Femur with Internal Fixation Device, Open Approach (ICD-10-PCS; principal; 2017-05-07 16:30)
PROC: 5A09357 Assistance with Respiratory Ventilation, Less than 24 Consecutive Hours, Continuous Positive Airway Pressure (ICD-10-PCS; 2017-05-07 16:46)
DX: S72.011A Unspecified intracapsular fracture of right femur, initial encounter for closed fracture (principal); J96.01 Acute respiratory failure with hypoxia; E43 Unspecified severe protein-calorie malnutrition; J90 Pleural effusion, not elsewhere classified; J44.0 Chronic obstructive pulmonary disease with (acute) lower respiratory infection; G62.9 Polyneuropathy, unspecified; R13.10 Dysphagia, unspecified; I69.351 Hemiplegia and hemiparesis following cerebral infarction affecting right dominant side; B19.20 Unspecified viral hepatitis C without hepatic coma; D63.8 Anemia in other chronic diseases classified elsewhere; E03.9 Hypothyroidism, unspecified; E78.00 Pure hypercholesterolemia, unspecified; E78.5 Hyperlipidemia, unspecified; F17.200 Nicotine dependence, unspecified, uncomplicated; F19.90 Other psychoactive substance use, unspecified, uncomplicated; F41.9 Anxiety disorder, unspecified; G25.81 Restless legs syndrome; G89.4 Chronic pain syndrome; I10 Essential (primary) hypertension; I69.320 Aphasia following cerebral infarction; J20.9 Acute bronchitis, unspecified; J30.9 Allergic rhinitis, unspecified; F32.9 Major depressive disorder, single episode, unspecified; W18.39XA Other fall on same level, initial encounter; Y93.89 Activity, other specified; Y92.89 Other specified places as the place of occurrence of the external cause; Y99.8 Other external cause status; K21.9 Gastro-esophageal reflux disease without esophagitis; M19.90 Unspecified osteoarthritis, unspecified site; M85.80 Other specified disorders of bone density and structure, unspecified site; N40.0 Benign prostatic hyperplasia without lower urinary tract symptoms; R47.02 Dysphasia; S00.03XA Contusion of scalp, initial encounter; Z88.0 Allergy status to penicillin; Z87.440 Personal history of urinary (tract) infections
CPT/HCPCS: 36415; 70450; 71045; 71250; 72125; 72170; 72192; 73502; 80048; 80053; 80202; 81001; 82306; 83735; 84145; 84484; 85025; 85610; 86850; 86900; 86901; 87040; 87641; 87804; 87804-59; 88305; 88311; 93005; 94640; 94760; 96361; 96374; 97162-GP; 97166-GO; 97530-GO; 97530-GP; 97535-GO; 99285; 99285-25; J0171; J0330; J1885; J1953; J1956; J2270; J2405; J2704; J2710; J2795; J3010; J3370; J3490; J7030; J7050; J7620; J7626